=== PATIENT | female | born 1980 | race Caucasian/White ===

== ENCOUNTER → 2017-06-13 | Outpatient (CLI) | payer OTHER ==
[~2017-06-13] MED LIST: None at this Time
[2017-06-13 09:04] LABS: HEMATOCRIT 37.1 % (34.6-47.8); HEMOGLOBIN 11.5 g/dL (11.7-16.4); WHITE BLOOD COUNT 6.1 x10^3/uL (3.4-10)
[2017-06-13 09:15] LABS: BLOOD UREA NITROGEN 9 mg/dL (7-18)
[2017-06-13 09:16] LABS: ASPARTATE AMINO TRANSFERASE 14 U/L (15-37)
== END | disposition home or self-care (01) ==
LOC: STAR 08:00
PROVIDERS: ATTEND Neurological Surgery
DX: Z01.818 Encounter for other preprocedural examination (principal); M96.0 Pseudarthrosis after fusion or arthrodesis; R79.1 Abnormal coagulation profile
CPT/HCPCS: 36415; 71020; 80053; 81003; 85025; 85610; 85730; 93005

== ENCOUNTER 2017-06-25 08:04 | Inpatient (IN) | payer OTHER ==
[2017-06-13 09:03] VITALS: BP 101/67
[~2017-06-25] VITALS: Ht 160 cm; Wt 103.8 kg
[2017-06-25] MEDS ORDERED: BUPIVACAINE/PF 0.5% ONE (10:42)
[2017-06-25] MEDS ORDERED: THROMBIN 5,000 UNIT VIAL TP ONE (10:42)
[2017-06-25] MEDS ORDERED: BACITRACIN 50,000 UNIT ONE (10:42)
[2017-06-25] MEDS ORDERED: OXYcodone 5 MG/5 ML ORAL.SOL UDC PO PRN (13:00)
[2017-06-25] MEDS ORDERED: ACETAMINOPHEN 325 MG TABLET PO PRN (13:00)
[2017-06-25] MEDS ORDERED: ONDANSETRON 2MG/ML, 2ML IVPush PRN ×2 (13:00→19:30)
[2017-06-25] MEDS ORDERED: MEPERIDINE/PF 25MG/0.5ML IVPush PRN (13:00)
[2017-06-25] MEDS ORDERED: HYDROmorphone 1 MG/ML, 1ML IV PRN (13:00)
[2017-06-25] MEDS ORDERED: LABETALOL 5MG/ML, 20ML IV PRN (13:00)
[2017-06-25] MEDS ORDERED: hydrALAzine 20 MG/ML, 1ML IV PRN (13:00)
[2017-06-25] MEDS ORDERED: MIDAZOLAM 1 MG/ML, 2ML IV PRN (13:00)
[2017-06-25] MEDS ORDERED: PROMETHAZINE 25 MG/ML, 1ML IV PRN (13:00)
[2017-06-25] MEDS ORDERED: LACTATED RINGERS 1,000 ML IV SCH (13:16)
[2017-06-25 13:26] LABS: HCG UR OBC PASS
[2017-06-25] MEDS ORDERED: FENTANYL PF 100 MCG/2ML ONE ×3 (13:56→19:03)
[2017-06-25] MEDS ORDERED: HYDROmorphone 1 MG/ML, 1ML ONE (13:56)
[2017-06-25] MEDS ORDERED: SCOPOLAMINE PATCH, 1.5MG PATCH.TD72 TD ONE ×2 (16:30)
[2017-06-25] MEDS ORDERED: ONDANSETRON 2MG/ML, 2ML ONE ×2 (16:34→19:31)
[2017-06-25] MEDS ORDERED: CEFAZOLIN 1,000 MG ONE (16:34)
[2017-06-25] MEDS ORDERED: DEXAMETHASONE 4 MG/ML, 1ML ONE (16:34)
[2017-06-25] MEDS ORDERED: METOCLOPRAMIDE 5 MG/ML, 2ML ONE (16:34)
[2017-06-25] MEDS ORDERED: SUCCINYLCHOLINE 20 MG/ML, 10ML ONE (16:34)
[2017-06-25] MEDS ORDERED: ROCURONIUM 10 MG/ML ONE (16:34)
[2017-06-25] MEDS ORDERED: PROPOFOL 10 MG/ML, 20ML ONE (16:34)
[2017-06-25] MEDS ORDERED: PROPOFOL 10 MG/ML, 50ML ONE (16:34)
[2017-06-25] MEDS ORDERED: HYDROmorphone PCA 30 MG/30 ML ONE (19:03)
[2017-06-25] MEDS: FENTANYL PF 100 MCG/2ML IV PRN ×2 (19:20→19:35)
[2017-06-25] MEDS ORDERED: DIAZEPAM 5 MG/ML, 2ML IVPush PRN (19:30)
[2017-06-25] MEDS ORDERED: PHARMACY MAY ADJ FOR RENAL FX MC PRN (19:30)
[2017-06-25] MEDS ORDERED: MEPERIDINE/PF 100 MG/ML IM PRN (19:30)
[2017-06-25] MEDS ORDERED: HYDROmorphone PCA 30 MG/30 ML IV PRN (19:30)
[2017-06-25] MEDS ORDERED: CYCLOBENZAPRINE 10 MG TABLET PO PRN (19:30)
[2017-06-25] MEDS ORDERED: DIPHENHYDRAMINE 50 MG/ML, 1ML IVPush PRN (19:30)
[2017-06-25] MEDS ORDERED: BISACODYL 10 MG SUPP PR PRN (19:30)
[2017-06-25] MEDS ORDERED: PROMETHAZINE 25 MG/ML, 1ML IM PRN (19:30)
[2017-06-25] MEDS ORDERED: HYDROmorphone 1 MG/ML, 1ML IVPush PRN (19:30)
[2017-06-25] MEDS: SODIUM CHLORIDE FLUSH 10ML SYR IVF SCH (21:00)
[2017-06-25] MEDS: CEFAZOLIN PMX 1GM/50ML 50 ML IVPB SCH (22:39)
[2017-06-25] MEDS: NS + 20MEQ KCL 1,000 ML IV SCH (22:40)
[2017-06-26 02:30] VITALS: BP 114/77
[2017-06-26] MEDS: CEFAZOLIN PMX 1GM/50ML 50 ML IVPB SCH (06:41)
[2017-06-26 07:25] VITALS: BP 91/59
[2017-06-26 08:10] VITALS: BP 101/68
[2017-06-26] MEDS: SENNA/DOCUSATE TABLET PO SCH (08:50)
[2017-06-26] MEDS: OXYcodone/APAP 5/325MG TABLET PO PRN ×4 (08:51→23:59)
[2017-06-26] MEDS: SODIUM CHLORIDE FLUSH 10ML SYR IVF SCH ×2 (09:00→21:00)
[2017-06-26] MEDS: NS + 20MEQ KCL 1,000 ML IV SCH ×2 (10:17→22:15)
[2017-06-26 13:21] VITALS: BP 97/61
[2017-06-26] MEDS: DIAZEPAM 5 MG TABLET PO PRN ×2 (13:31→20:29)
[2017-06-26 17:58] VITALS: BP 104/66
[2017-06-26 19:05] VITALS: BP 105/69
[2017-06-26] MEDS: BUTALB/APAP/CAFFEINE 50MG/325MG/40MG PO PRN (22:14)
[2017-06-27 07:05] VITALS: BP 98/60
[2017-06-27] MEDS: SODIUM CHLORIDE FLUSH 10ML SYR IVF SCH ×2 (09:00→21:00)
[2017-06-27] MEDS ORDERED: SODIUM CHLORIDE 0.9% 500 ML IV ONE (09:30)
[2017-06-27] MEDS: SENNA/DOCUSATE TABLET PO SCH (09:39)
[2017-06-27] MEDS: DEXAMETHASONE 4 MG/ML, 1ML IV SCH ×3 (09:39→23:17)
[2017-06-27 10:06] LABS: HEMATOCRIT 32.6 % (34.6-47.8); WHITE BLOOD COUNT 8.1 x10^3/uL (3.4-10)
[2017-06-27 10:19] LABS: BLOOD UREA NITROGEN 8 mg/dL (7-18)
[2017-06-27] MEDS: OXYcodone/APAP 5/325MG TABLET PO PRN ×3 (10:24→23:25)
[2017-06-27] MEDS: NS + 20MEQ KCL 1,000 ML IV SCH ×2 (11:52→23:17)
[2017-06-27] MEDS: DIAZEPAM 5 MG TABLET PO PRN ×2 (12:54→20:01)
[2017-06-27 12:55] VITALS: BP 108/66
[2017-06-27 13:47] VITALS: BP 105/62
[2017-06-27] MEDS: HYDROcodone/APAP 10/325 MG TABLET PO PRN (14:29)
[2017-06-27 20:16] VITALS: BP 107/70
[2017-06-28] VITALS (7 sets, daily range): BP systolic 90–140; BP diastolic 50–86
[2017-06-28] MEDS: DIAZEPAM 5 MG TABLET PO PRN (02:07)
[2017-06-28] MEDS: DEXAMETHASONE 4 MG/ML, 1ML IV SCH ×4 (04:40→21:45)
[2017-06-28] MEDS: OXYcodone/APAP 5/325MG TABLET PO PRN ×4 (04:41→18:46)
[2017-06-28] MEDS: NS + 20MEQ KCL 1,000 ML IV SCH (08:20)
[2017-06-28] MEDS: SENNA/DOCUSATE TABLET PO SCH (08:29)
[2017-06-28] MEDS: SODIUM CHLORIDE FLUSH 10ML SYR IVF SCH ×2 (08:36→21:12)
[2017-06-28] MEDS: TIZANIDINE 4MG TABLET PO SCH ×2 (08:52→15:42)
[2017-06-28] MEDS: MAGNESIUM HYDROXIDE 8%, 30ML UDC PO PRN (08:52)
[2017-06-28] MEDS ORDERED: OMNIPAQUE 350 MG/ML, 100ML BOTTLE ONE (09:34)
[2017-06-28 12:11] LABS: FERRITIN 53.1 ng/mL (8-252)
[2017-06-28] MEDS ORDERED: DIAZEPAM 5 MG TABLET PO PRN ×2 (13:30)
[2017-06-28] MEDS ORDERED: SODIUM CHLORIDE 0.9%, 500ML IVBOLUS ONE ×3 (13:30→18:30)
[2017-06-28] MEDS: SODIUM CHLORIDE 0.9% 1,000 ML IV SCH ×3 (13:41→21:50)
[2017-06-28 14:16] LABS: HEMATOCRIT 31.3 % (34.6-47.8); HEMOGLOBIN 9.6 g/dL (11.7-16.4); WHITE BLOOD COUNT 9.2 x10^3/uL (3.4-10)
[2017-06-28 14:32] LABS: BLOOD UREA NITROGEN 8 mg/dL (7-18)
[2017-06-28 14:37] LABS: ASPARTATE AMINO TRANSFERASE 18 U/L (15-37)
[2017-06-28] MEDS: HYDROcodone/APAP 10/325 MG TABLET PO PRN (23:24)
[2017-06-29] MEDS: TIZANIDINE 4MG TABLET PO SCH ×3 (01:36→17:16)
[2017-06-29] MEDS: SODIUM CHLORIDE 0.9% 1,000 ML IV SCH ×3 (02:01→12:02)
[2017-06-29 03:41] VITALS: BP_SYST 112; BP_SYST 116; BP_DIAS 69; BP_DIAS 74
[2017-06-29] MEDS: HYDROcodone/APAP 10/325 MG TABLET PO PRN (04:30)
[2017-06-29] MEDS: DEXAMETHASONE 4 MG/ML, 1ML IV SCH ×4 (04:55→21:45)
[2017-06-29] MEDS: OXYcodone IR 5MG TABLET PO PRN ×3 (07:35→21:45)
[2017-06-29 08:36] VITALS: BP 125/76
[2017-06-29] MEDS: SODIUM CHLORIDE FLUSH 10ML SYR IVF SCH ×2 (09:00→21:00)
[2017-06-29] MEDS: SENNA/DOCUSATE TABLET PO SCH (09:01)
[2017-06-29 14:49] VITALS: BP 138/83
[2017-06-29] MEDS: MAGNESIUM HYDROXIDE 8%, 30ML UDC PO PRN (17:16)
[2017-06-29] MEDS: BUTALB/APAP/CAFFEINE 50MG/325MG/40MG PO PRN (17:17)
[2017-06-29 19:58] VITALS: BP_SYST 127; BP_SYST 133; BP_SYST 138; BP_DIAS 70; BP_DIAS 71; BP_DIAS 74
[2017-06-30 00:27] VITALS: BP 127/69
[2017-06-30] MEDS: TIZANIDINE 4MG TABLET PO SCH ×3 (01:23→16:36)
[2017-06-30] MEDS: OXYcodone IR 5MG TABLET PO PRN ×5 (01:24→22:20)
[2017-06-30 03:57] VITALS: BP_SYST 128; BP_SYST 136; BP_SYST 149; BP_DIAS 64; BP_DIAS 74; BP_DIAS 78
[2017-06-30] MEDS: DEXAMETHASONE 4 MG/ML, 1ML IV SCH ×2 (04:08→09:19)
[2017-06-30 05:13] LABS: BLOOD UREA NITROGEN 10 mg/dL (7-18)
[2017-06-30] MEDS: SODIUM CHLORIDE 0.9% 1,000 ML IV SCH ×2 (05:18→21:15)
[2017-06-30 07:24] VITALS: BP 162/88
[2017-06-30] MEDS ORDERED: BISACODYL 10 MG SUPP PR ONE (09:00)
[2017-06-30] MEDS: POLYETHYLENE GLYCOL 17 GM PACKET PO SCH (09:19)
[2017-06-30] MEDS: SENNA/DOCUSATE TABLET PO SCH (09:19)
[2017-06-30] MEDS: SODIUM CHLORIDE FLUSH 10ML SYR IVF SCH ×2 (09:20→21:00)
[2017-06-30 09:51] VITALS: BP 91/53
[2017-06-30 11:40] VITALS: BP_SYST 113; BP_SYST 120; BP_SYST 121; BP_DIAS 61; BP_DIAS 67; BP_DIAS 68
[2017-06-30] MEDS: MAGNESIUM HYDROXIDE 8%, 30ML UDC PO PRN (16:56)
[2017-06-30 18:45] VITALS: BP_SYST 93; BP_SYST 95; BP_SYST 97; BP_DIAS 59; BP_DIAS 61
[2017-06-30] MEDS: BUTALB/APAP/CAFFEINE 50MG/325MG/40MG PO PRN (21:38)
[2017-07-01 00:49] VITALS: BP 126/79
[2017-07-01] MEDS: TIZANIDINE 4MG TABLET PO SCH ×2 (01:38→09:12)
[2017-07-01 04:57] LABS: BLOOD UREA NITROGEN 11 mg/dL (7-18)
[2017-07-01 06:35] VITALS: BP 135/82
[2017-07-01] MEDS ORDERED: MAGNESIUM CITRATE 300ML ORAL SOL ONE (07:38)
[2017-07-01] MEDS ORDERED: MAGNESIUM CITRATE 300ML ORAL SOL PO ONE (08:00)
[2017-07-01] MEDS ORDERED: OXYC5TAB2 PO (08:43)
[2017-07-01] MEDS ORDERED: TIZA2CAP2 PO (08:45)
[2017-07-01] MEDS ORDERED: medrol dose pack (08:46)
[2017-07-01] MEDS ORDERED: POLY17PO5 PO (08:47)
[2017-07-01] MEDS: POLYETHYLENE GLYCOL 17 GM PACKET PO SCH (09:12)
[2017-07-01] MEDS: SENNA/DOCUSATE TABLET PO SCH (09:12)
== END 2017-07-01 10:57 | disposition home or self-care (01) | DRG 473 ==
LOC: ORIP 12:32 → MERGE 15:00 → 4NOR 20:53 → 5SO 06-28 12:03
PROVIDERS: ADMIT Neurological Surgery; ATTEND Neurological Surgery
PROC: 0RG10A0 Fusion of Cervical Vertebral Joint with Interbody Fusion Device, Anterior Approach, Anterior Column, Open Approach (ICD-10-PCS; 2017-06-25)
PROC: 0RP104Z Removal of Internal Fixation Device from Cervical Vertebral Joint, Open Approach (ICD-10-PCS; 2017-06-25)
PROC: 0RB30ZZ Excision of Cervical Vertebral Disc, Open Approach (ICD-10-PCS; principal; 2017-06-25 15:30)
DX: T84.9XXA Unspecified complication of internal orthopedic prosthetic device, implant and graft, initial encounter (principal); R00.1 Bradycardia, unspecified; D56.3 Thalassemia minor; Z87.891 Personal history of nicotine dependence
CPT/HCPCS: 36415; 71275; 72040; 80048; 80053; 81025; 82040; 82728; 83540; 83550; 83735; 85025; 86850; 86900; 93005; 93306; 95938; 95941; C1713; J0690; J1100; J1170; J2405; J2704; J3010; J3360; J3480; J3490; Q9967; C1762; J0330; J2765; J7030; J7040; J7120; J7512

== ENCOUNTER 2019-06-13 15:16 | Outpatient (CLI) | payer OTHER | END 2019-06-13 23:59 | disposition home or self-care (01) | LOC: RAD 15:16 | PROVIDERS: ATTEND Nurse Practitioner Primary Care | DX: R05 Cough (principal) | CPT/HCPCS: 71046 ==

== ENCOUNTER → 2020-08-12 | Outpatient (CLI) | payer OTHER ==
[~2020-08-12] MED LIST changes: +OXYC5TAB2 PO; +POLY17PO5 PO; +TIZA2CAP2 PO; +medrol dose pack
== END | disposition home or self-care (01) ==
LOC: CFH 07:55
PROVIDERS: ATTEND Obstetrics & Gynecology
DX: Z12.31 Encounter for screening mammogram for malignant neoplasm of breast (principal)
CPT/HCPCS: 77063; 77067